=== PATIENT | female | born 1980 | race African-American/Black ===

== ENCOUNTER 2017-02-16 18:35 | Emergency (ER) | payer OTHER ==
[~2017-02-16] VITALS: Ht 170.2 cm; Wt 93.0 kg
--- NOTE | ~2017-02-16 | CT2 ---
[facility] A Service of [facility] RADIOLOGY TEXT RESULTS PATIENT: JOSE SALCEDO LOCATION: [facility] : [birth year] UNIT #: [id number] AGE: [address]: Logan Olivier MD SEX: F ORDER DR: [id number] [facility] [address] [place], [place] [address] [id number] E MR#: [id number] #: [id number] NAME: JOSE SALCEDO : 1980 SEX: F STUDY DATE/TIME: 02/16/2017 20:43 UNIT: [facility] ROOM: STUDY DESCRIPTION: CT Abd and Pelv W Cont Attending Physician: Logan Olivier M.D. Ordering Physician: Logan Olivier M.D. Primary Care Physician: Primary Care Physician No MEDICAL IMAGING REPORT This report is preliminary unless electronic signature is present EXAM CT abdomen and pelvis with contrast, 02/08/2017 HISTORY 36-year-old female with right side abdominal pain, nausea, vomiting and diarrhea. Symptoms present for 2 weeks. Previous multiple lithotripsies. COMPARISON Noncontrast CT abdomen and pelvis, 10/02/2015. PROCEDURE 5.0 mm axial images through the abdomen and pelvis after intravenous and enteric contrast administration. Sagittal and coronal reformatted images were obtained. This CT exam was performed with one or more of the following radiation dose reduction techniques: automatic exposure control, adjustment of mA and/or kV according to patient size, and iterative reconstruction. FINDINGS Tiny nonobstructing stone is seen within the right lower renal pole. No definite ureteral calculus or hydronephrosis is identified. Small bilateral pelvic phleboliths are unchanged in comparison to the 10/02/2015 exam. The appendix is normal. Bowel appears grossly nonthickened and noninflamed. The lung bases appear clear. The liver, gallbladder, spleen, pancreas and adrenal glands are normal. PELVIS FINDINGS: Urinary bladder, uterus and rectum are normal. No pelvic adenopathy or free fluid is identified. Not mentioned above, there is also a punctate stone within the left lower [facility] A Service of [facility] RADIOLOGY TEXT RESULTS PATIENT: JOSE SALCEDO LOCATION: [facility] #: [id number] : [birth year] UNIT #: [id number] AGE: [address]: Logan Olivier MD SEX: F ORDER DR: renal pole. IMPRESSION 1. No acute findings in the abdomen or pelvis. 2. Small nonobstructing bilateral renal calculi. 3. The appendix is normal. Dictated by... Nilda Mcknight M.D. THIS IS AN ELECTRONICALLY VERIFIED REPORT Nilda Mcknight M.D. at 02/17/2017 1:55 PM Jesus TD: 02/17/2017 11:06 JOB #: [id number] MEDICAL IMAGING REPORT Page 1 of 1 COPY
[2017-02-16 19:39] LABS: BASOPHIL# 0.1 X10e3 (0-0.3); BASOPHIL% 0.7 % (0-2.5); DIFF IND NO; EOSINOPHIL% 0.4 % (0.0-7.0); HEMATOCRIT 39.8 % (35.0-45.0); HEMOGLOBIN 13.4 gm/dL (12.0-16.0); LYMPHOCYTE# 2.9 X10e3 (1.0-3.5); LYMPHOCYTE% 28.1 % (17.0-45.0); MEAN CELL VOLUME 89.7 FL (83-96); MEAN CORPUSCULAR HEMOGLOBIN 30.1 PG (28-34); MEAN CORPUSCULAR HGB CONC 33.5 g/dL (30-36); MONOCYTE# 0.7 X10e3 (0-1.0); MONOCYTE% 6.8 % (3.0-12.0); NEUTROPHIL# 6.5 X10e3 (1.5-7.1); PLATELET COUNT 256 X10e3 (140-420); RED BLOOD COUNT 4.44 X10e (3.90-5.30); RED CELL DISTRIBUTION WIDTH 13.8 % (11.0-15.5); WHITE BLOOD COUNT 10.2 X10e3 (4.0-10.5)
[2017-02-16 20:03] LABS: ALBUMIN SERUM 4.1 g/dL (3.5-5.0); BILIRUBIN, DIRECT 0.2 mg/dL (0.0-0.2); BILIRUBIN,INDIRECT 0.3 mg/dL (0.0-0.9); BILIRUBIN,TOTAL 0.5 mg/dL (0.2-2.0); CALCIUM SERUM 9.1 mg/dL (8.4-10.2); GLOM FILT RATE Estimated 72.5 mL/min (>60); POTASSIUM 4.2 mmol/L (3.5-5.1); PROTEIN TOTAL SERUM 7.6 g/dL (6.0-8.3)
[2017-02-16 20:19] LABS: URINE SOURCE CLEAN CATCH
[2017-02-16 20:27] LABS: URINE APPEARANCE CLEAR; URINE BILIRUBIN NEG (NEG); URINE BLOOD NEG (NEG); URINE COLOR YELLOW; URINE GLUCOSE NEG (NEG); URINE KETONE NEG (NEG); URINE LEUKOCYTE ESTERASE NEG (NEG); URINE NITRATE NEG (NEG); URINE PH 6.5 (5-8); URINE PROTEIN NEG (NEG); URINE SPECIFIC GRAVITY 1.021 (1.003-1.035)
[2017-02-16 20:31] LABS: CULTURE INDICATED? NO
== END 2017-02-16 21:37 | disposition home or self-care (01) ==
LOC: CED 18:35
PROVIDERS: Emergency Medicine
DX: R10.31 Right lower quadrant pain (principal); R11.2 Nausea with vomiting, unspecified; R19.7 Diarrhea, unspecified; Z87.442 Personal history of urinary calculi; Z98.890 Other specified postprocedural states; F17.200 Nicotine dependence, unspecified, uncomplicated
CPT/HCPCS: 36415; 74177; 80048; 80076; 81003; 83690; 85025; 96361; 96374; 96375; 99284; J2270; J2405; Q9967